=== PATIENT | female | born 1980 | race Caucasian/White ===

== ENCOUNTER → 2016-09-25 | Outpatient (CLI) | payer OTHER ==
[2016-09-25 13:47] LABS: BASOPHILS # (AUTO) 0.02 10*3/UL; BASOPHILS % (AUTO) 0.3 % (0-1); EOSINOPHILS # (AUTO) 0.05 10*3/UL; EOSINOPHILS % (AUTO) 0.7 % (0-8); HEMATOCRIT 41.3 % (37.0-47.0); HEMOGLOBIN 13.8 g/dL (12.0-16.0); LYMPHOCYTES # (AUTO) 1.42 10*3/uL; MEAN CORPUSCULAR HEMOGLOBIN 31.3 PG (27-31); MEAN CORPUSCULAR HGB CONC 33.4 g/dL (33-37); MEAN CORPUSCULAR VOLUME 93.7 FL (81-99); MEAN PLATELET VOLUME 10.7 FL (7.4-12.2); MONOCYTES # (AUTO) 0.51 10*3/UL (0.3-0.8); MONOCYTES % (AUTO) 7.1 % (5-15); NEUTROPHILS # (AUTO) 5.17 10*3/UL; RED BLOOD COUNT 4.41 10^6/uL (4.20-5.40)
[2016-09-25 13:49] LABS: PLATELET MORPHOLOGY COMMENT NORMAL MORPHOLOGY (NORM); RBC MORPHOLOGY COMMENT NORMAL MORPHOLOGY (NORM); WBC MORPHOLOGY COMMENT NORMAL MORPHOLOGY (NORM)
[2016-09-25 13:57] LABS: BLOOD UREA NITROGEN 10 mg/dL (7-22); BUN/CREATININE RATIO 14.28 (6-20); CALCIUM 9.1 mg/dL (8.7-10.7); EST GLOMERULAR FILTRATION > 60 (>60 ml/min/1.73m(2)); LIPASE 76 IU/L (23-300); SERUM ALBUMIN 4.6 g/dL (3.5-4.8)
--- NOTE | 2016-09-25 14:38 | DI ---
KUB, 09/25/2016 1:24 PM: Clinical History: Flank pain. Previous Exam: None at this facility. There are no soft tissue or bony abnormalities. Bowel gas pattern, psoas margins, and flank stripes a re normal. There is no free air or fluid. There are no abnormal radiodensities. There are metal bars in the left sacroiliac joint secondary to arthrodesis of that joint. Reading: Normal KUB exam.
== END ==
LOC: MOB RAD 13:27
PROVIDERS: ATTEND Physician Assistant
DX: R10.84 Generalized abdominal pain (principal); R31.9 Hematuria, unspecified; R30.0 Dysuria
CPT/HCPCS: 36415; 74000; 80053; 83690; 85025; 87088; 87185; 87205